=== PATIENT | male | born 1995 | race Two or more races ===

== ENCOUNTER 2018-05-13 11:11 | Emergency (ER) | payer OTHER ==
[2018-05-13 11:30] VITALS: BP 128/78
--- NOTE | 2018-05-13 12:27 | XRAY Report ---
Reason: Trauma Procedure Date: 05/13/2018 Accession Number: [id number] / [id number] Procedure: XR - Wrist 4 View LT CPT Code: FULL RESULT: EXAM: LEFT WRIST RADIOGRAPHY EXAM DATE: 05/13/2018 11:39 AM. CLINICAL HISTORY: Trauma. COMPARISON: None. TECHNIQUE: 3 views. FINDINGS: Bones: Normal. No fractures or bone lesions. Joints: Normal. No subluxations. Soft Tissues: Mild soft tissue swelling noted. No radiopaque foreign bodies are noted. IMPRESSION: 1. No fracture or malalignment. 2. Moderate swelling noted. 3. If patient remains symptomatic, recommend follow up in 10-14 days. RADIA
--- NOTE | 2018-05-13 13:13 | ED Physician Documentation ---
PD HPI UPPER EXT INJURY - Stated complaint Stated Complaint: WRIST PX - Chief complaint Chief Complaint: Ext Problem - History obtained from History obtained from: Patient - History of Present Illness Location: Left (Right-handed woman was popping her left wrist last night and felt a pull or a pop across the top of the left ulna and has mild persistent pain there.) Review of Systems Constitutional: reports: Reviewed and negative Throat: reports: Reviewed and negative Cardiac: reports: Reviewed and negative PD PAST MEDICAL HISTORY - Present Medications Home Medications: Ambulatory Orders Medication Instructions Recorded Confirmed No Known Home Medications 05/13/18 05/13/18 - Allergies Allergies/Adverse Reactions: Allergies Allergy/AdvReac Type Severity Reaction Status Date / Time No Known Drug Allergies Allergy Verified 05/13/18 11:30 PD ED PE NORMAL - Vitals Vital signs reviewed: Yes - General General: Alert and oriented X 3, No acute distress - Extremities Extremities: Other (On the ulnar and dorsal side of the left wrist there is mild tenderness and swelling. She has pain especially with radial deviation of the wrist but otherwise has full range of motion.) - Neuro Neuro: Alert and oriented X 3, Normal speech Results - Vitals Vitals: Vital Signs - 24 hr 05/13/18 11:28 Temperature 36.8 C Heart Rate 71 Respiratory 16 Rate Blood Pressure 128/78 O2 Saturation 99 Oxygen O2 Source Room air - Rads (name of study) L wrist 4v Radiology: EMP read contemporaneously (NAD) Departure - Departure Disposition: 01 Home, Self Care Clinical Impression: Left wrist sprain Qualifiers: Encounter type: initial encounter Qualified Code(s): S63.502A - Unspecified sprain of left wrist, initial encounter Condition: Good Record reviewed to determine appropriate education?: Yes Instructions: ED Sprain Wrist Comments: Recheck with your doctor in 1-2 weeks if not better. You can take Tylenol or ibuprofen as needed for pain.
== END 2018-05-13 13:18 | disposition home or self-care (01) ==
LOC: ED 11:11
DX: S63.502A Unspecified sprain of left wrist, initial encounter (principal); X58.XXXA Exposure to other specified factors, initial encounter
CPT/HCPCS: 99283

== ENCOUNTER 2019-11-25 08:00 | Outpatient (CLI) | payer OTHER ==
[2019-11-25 20:49] LABS: TRICHOMONAS VAGINALIS DNA NEGATIVE (NEGATIVE)
== END 2019-11-25 23:59 | disposition home or self-care (01) ==
LOC: LAB.R 08:00
PROVIDERS: ATTEND Obstetrics & Gynecology
DX: Z34.90 Encounter for supervision of normal pregnancy, unspecified, unspecified trimester (principal)
CPT/HCPCS: 87491; 87591; 87661; 87797

== ENCOUNTER 2019-11-28 10:29 | Outpatient (CLI) | payer OTHER ==
[2019-11-28 10:42] VITALS: BP 126/76
--- NOTE | 2019-11-28 13:07 | PROVIDER PROGRESS NOTE ---
- HPI Chief Complaint: Labor Check Current : Current EDU 12/27/19 Gestation 35 Weeks and 6 Days 1 Para 0 Vital Signs Temperature 37.4 C 11/28/19 10:41 Heart Rate 101 H 11/28/19 10:41 Respiratory Rate 17 11/28/19 10:41 Blood Pressure 126/76 11/28/19 10:41 O2 Saturation 100 11/28/19 10:41 Temperature 37.4 C 11/28/19 10:41 Heart Rate 101 H 11/28/19 10:41 Respiratory Rate 17 11/28/19 10:41 Blood Pressure 126/76 11/28/19 10:41 O2 Saturation 100 11/28/19 10:41 - Procedures OB Procedure Performed: NST NST Procedure: reactive Service Date of procedure: 11/28/19 Findings: CX Long cloed Hi no evidence of SROM bleeding with wiping. None seen on glove Reviewed SROM adn labor. Keep appt
== END 2019-11-28 12:15 | disposition home or self-care (01) ==
LOC: WFO 10:29 → FBP 10:33 → WFO 12:15
PROVIDERS: ATTEND Obstetrics & Gynecology
DX: Z34.03 Encounter for supervision of normal first pregnancy, third trimester (principal); Z3A.35 35 weeks gestation of pregnancy
CPT/HCPCS: 99213

== ENCOUNTER 2019-12-09 12:58 | Outpatient (CLI) | payer OTHER ==
[2019-12-09 13:20] LABS: HGB - HEMOGLOBIN 12.4 g/dL (12.0-16.0); MEAN CORPUSCULAR HEMOGLOBIN 29.9 pg (27.0-31.0); MEAN CORPUSCULAR HGB CONC 33.6 g/dL (32.0-36.0); MEAN CORPUSCULAR VOLUME 88.9 fL (81.0-99.0); MEAN PLATELET VOLUME 10.9 fL (7.9-10.8); RED BLOOD COUNT 4.15 10^6/uL (4.20-5.40); RED CELL DISTRIBUTION WIDTH 13.2 % (12.0-15.0); WHITE BLOOD COUNT 9.4 x10^3/uL (4.8-10.8)
[2019-12-09 13:33] LABS: ALBUMIN 3.4 g/dL (3.2-5.5); BILIRUBIN,TOTAL 0.6 mg/dL (0.2-1.0); CALCIUM 8.9 mg/dL (8.5-10.3); CREATININE 0.6 mg/dL (0.4-1.0); TOTAL PROTEIN 6.9 g/dL (6.7-8.2)
== END 2019-12-09 12:59 | disposition home or self-care (01) ==
LOC: LAB 12:58
PROVIDERS: ATTEND Obstetrics & Gynecology
DX: O26.899 Other specified pregnancy related conditions, unspecified trimester (principal); L29.9 Pruritus, unspecified; Z3A.00 Weeks of gestation of pregnancy not specified
CPT/HCPCS: 36415; 80053; 82542; 85027

== ENCOUNTER 2019-12-20 17:44 | Outpatient (CLI) | payer OTHER ==
[2019-12-20 18:34] VITALS: BP 116/86
[2019-12-20 19:04] LABS: RUPTURE OF MEMBRANES PLUS NEGATIVE (NEGATIVE)
--- NOTE | 2019-12-20 19:39 | PROCEDURE REPORT ---
- HPI Diagnosis/Indication for NST: Other (leaking of fluid) Current EDU 12/27/19 Gestation 39 Weeks and 0 Days 1 Para 0 Vital Signs Temperature 98.6 F 12/20/19 18:31 Heart Rate 88 12/20/19 18:31 Respiratory Rate 18 12/20/19 18:31 Blood Pressure 116/86 H 12/20/19 18:31 O2 Saturation 97 12/20/19 18:31 Temperature 98.6 F 12/20/19 18:31 Heart Rate 88 12/20/19 18:31 Respiratory Rate 18 12/20/19 18:31 Blood Pressure 116/86 H 12/20/19 18:31 O2 Saturation 97 12/20/19 18:31 - Results and Plan Findings/Impression: Category 1 NST Chilo irritable Negative pool, valsalva, nitrizine, and amnisure. Pt with no visible loss of fluid here. Came in not wearing a pad. F/u routine clinic
== END 2019-12-20 19:26 | disposition home or self-care (01) ==
LOC: WFO 17:44 → FBP 17:48 → WFO 19:26
PROVIDERS: ATTEND Obstetrics & Gynecology
DX: Z34.03 Encounter for supervision of normal first pregnancy, third trimester (principal); Z3A.39 39 weeks gestation of pregnancy
CPT/HCPCS: 84112; 99214

== ENCOUNTER 2019-12-25 16:08 | Inpatient (IN) | payer OTHER ==
[2019-12-25] MEDS ORDERED: ONDANSETRON 4 MG/2 ML VIAL IVP PRN (16:51)
[2019-12-25] MEDS ORDERED: miSOPROStoL 200 MCG TABLET BC PRN (16:51)
[2019-12-25] MEDS ORDERED: OXYTOCIN 10 UNIT/ML VIAL IM PRN (16:51)
[2019-12-25] MEDS ORDERED: OXYTOCIN/SODIUM CHLORIDE 500 ML IV PRN (16:51)
[2019-12-25] MEDS ORDERED: LIDOCAINE-MPF 1% 30 ML VIAL ID PRN (16:51)
[2019-12-25] MEDS ORDERED: CARBOPROST TROMETHAMINE 250 MCG/ML AMP IM PRN (16:51)
[2019-12-25] MEDS ORDERED: TRANEXAMIC ACID 1,000 MG in SODIUM CHLORIDE 0.9% 100ML 100 ML IV PRN (16:51)
[2019-12-25] MEDS ORDERED: SODIUM CHLORIDE FLUSH 0.9% 10 ML SYRINGE IVP PRN (16:51)
[2019-12-25] MEDS ORDERED: fentaNYL 100 MCG/2 ML VIAL IVP PRN (16:51)
[2019-12-25] MEDS ORDERED: METHYLERGONOVINE 0.2 MG/ML VIAL IM PRN (16:51)
[2019-12-25] MEDS ORDERED: OXYTOCIN/SODIUM CHLORIDE 500 ML IV SCH (17:00)
--- NOTE | 2019-12-25 17:21 | HISTORY & PHYSICAL EXAMINATION ---
History of Present Illness - History of Present Illness HPI Comment/Other: CC: elective IOL HPI: ready for IOL. Some cramping and loss of mucous plug after she was swept in clinic. No bleeding. No current UC. Good FM. ROS: no fevers, some nausea has returned recently, otherwise feeling well/normal. PMH: preg with IUD failure PSH: neg Allergies: neg Meds: PNV SH: no t/e/d FH: no anesthesia problems OB: G1=current see flow sheet O: AVSS Alert smiling NAD Abd soft, nt/nd, gravid Vertex by britni and SVE. Britni 7.75# SVE 3/80/-2/med/mid. Membranes swept. NST category 1 Howard neg A/P: 24yo G1 at 39w5d by LMP c/w 13w US. IOL with pitocin "elective", is ripe. Aware of alternative of waiting for spontaneous labor. Conceived with IUD--needs AXR A+, RI, , GBS neg, nl pap well being: category 1 NST, vertex, normal genetic screening, normal anatomy, AGA History - Past Medical History MRSA Hx?: No Meds/Allgy - Home Medications Home Medications: Ambulatory Orders Medication Instructions Recorded Confirmed No Known Home Medications 05/13/18 05/13/18 - Allergies Allergies/Adverse Reactions: Allergies Allergy/AdvReac Type Severity Reaction Status Date / Time No Known Drug Allergies Allergy Verified 05/13/18 11:30
[2019-12-25 17:43] LABS: BASOPHILS % (AUTO) 0.4 %; EOSINOPHILS % (AUTO) 0.2 %; HGB - HEMOGLOBIN 12.3 g/dL (12.0-16.0); LYMPHOCYTES % (AUTO) 27.6 %; MEAN CORPUSCULAR HEMOGLOBIN 30.2 pg (27.0-31.0); MEAN CORPUSCULAR HGB CONC 34.4 g/dL (32.0-36.0); MEAN PLATELET VOLUME 11.5 fL (7.9-10.8); MONOCYTES # (AUTO) 0.4 10^3/uL (0.0-1.0); MONOCYTES % (AUTO) 4.1 %; NEUTROPHILS # (AUTO) 7.2 10^3/uL (1.5-6.6); NEUTROPHILS % (AUTO) 67.3 %; PLT - PLATELET COUNT 256 10^3/uL (130-450); RED BLOOD COUNT 4.07 10^6/uL (4.20-5.40); RED CELL DISTRIBUTION WIDTH 13.6 % (12.0-15.0); WHITE BLOOD COUNT 10.7 x10^3/uL (4.8-10.8)
[2019-12-25] MEDS: LACTATED RINGERS 1,000 ML IV SCH (18:05)
[2019-12-25] MEDS: TERBUTALINE 1 MG/ML VIAL SUBQ SCH (18:35)
--- NOTE | 2019-12-26 02:55 | PROVIDER PROGRESS NOTE ---
Subjective - Subjective Subjective: 09/05 contraction started 1h ago, not regular. No LOF. Category 1 NST Dun[place] irregular contractions, sometimes q3 Patient smiling, while in room she had no outwardly visible contraction after verbal consent, AROM clear Discussed hip opening exercises to do now. Anticipate . Objective - Vital Signs/Intake & Output Vital Signs: Vital Signs x48h Temp Pulse Resp BP Pulse Ox 12/25/19 19:30 98.8 F 79 16 126/78 100 - Lab Results Fish Bones: 12/25/19 17:20 Other Labs: Lab Results x24hrs 12/25/19 Range/Units 17:20 WBC 10.7 (4.8-10.8) x10^3/uL RBC 4.07 L (4.20-5.40) 10^6/uL Hgb 12.3 (12.0-16.0) g/dL Hct 35.8 L (37.0-47.0) % MCV 88.0 (81.0-99.0) fL MCH 30.2 (27.0-31.0) pg MCHC 34.4 (32.0-36.0) g/dL RDW 13.6 (12.0-15.0) % Plt Count 256 (130-450) 10^3/uL MPV 11.5 H (7.9-10.8) fL Neut # (Auto) 7.2 H (1.5-6.6) 10^3/uL Lymph # (Auto) 3.0 (1.5-3.5) 10^3/uL [place] # (Auto) 0.4 (0.0-1.0) 10^3/uL Eos # (Auto) 0.0 (0.0-0.7) 10^3/uL Baso # (Auto) 0.0 (0.0-0.1) 10^3/uL Absolute Nucleated RBC 0.00 x10^3/uL Nucleated RBC % 0.0 /100WBC
[2019-12-26] MEDS ORDERED: fentaNYL 100 MCG/2 ML VIAL ONE (04:57)
[2019-12-26] MEDS ORDERED: ROPIVACAINE 0.2% 200 MG/100 ML BAG EP ONE (04:58)
[2019-12-26] MEDS ORDERED: BUPIVACAINE 0.25% PF 10 ML VIAL ONE (04:58)
--- NOTE | 2019-12-26 06:31 | ANESTHESIA ---
Pre-Anesthesia VS, & Labs - Diagnosis active labor - Procedure PATITO Vital Signs: Temp Pulse Resp BP Pulse Ox 37.1 C 79 16 126/78 100 12/25/19 19:30 12/25/19 19:30 12/25/19 19:30 12/25/19 19:30 12/25/19 19:30 Height 5 ft 8 in Weight (kg) 96.797 kg Body Mass Index 25.8 - Is Patient ?: Yes - Lab Results Current Lab Results: Laboratory Tests 12/25/19 17:20: WBC 10.7, RBC 4.07 L, Hgb 12.3, Hct 35.8 L, MCV 88.0, MCH 30.2, MCHC 34.4, RDW 13.6, Plt Count 256, MPV 11.5 H, Neut # (Auto) 7.2 H, Lymph # (Auto) 3.0, [place] # (Auto) 0.4, Eos # (Auto) 0.0, Baso # (Auto) 0.0, Absolute Nucleated RBC 0.00, Nucleated RBC % 0.0 Fish Bones: 12/25/19 17:20 Home Medications and Allergies Active Medications Carboprost Tromethamine (Hemabate) 250 mcg IM Q15M PRN PRN Reason: Step 4: Hemorrhage protocol Stop: 12/27/19 16:51 Fentanyl (Fentanyl) 50 mcg IVP Q1H PRN PRN Reason: PAIN Last Admin: 12/26/19 03:25 Dose: 50 mcg Documented by: Oxytocin/Sodium Chloride (Pitocin/Sodium Chloride) 500 mls @ 999 mls/hr IV PRN PRN; Protocol PRN Reason: POST- HEMORR PREVENTION Stop: 12/27/19 16:51 Tranexamic Acid 1,000 mg/ (Sodium Chloride) 110 mls @ 660 mls/hr IV ONCE PRN PRN Reason: EBL >1200mL and within 3hr Stop: 12/27/19 16:51 Oxytocin/Sodium Chloride (Pitocin/Sodium Chloride) 500 mls @ 1 mls/hr IV TITR KEIKO; Protocol Last Admin: 12/25/19 18:05 Dose: 1 milliunit/min, 1 mls/hr Documented by: Lactated Ringer's (Lr) 1,000 mls @ 150 mls/hr IV .Q6H40M KEIKO Last Admin: 12/25/19 18:05 Dose: 75 mls/hr Documented by: Lidocaine HCl (Xylocaine-Mpf 1% Vial) 30 ml ID ONCE PRN PRN Reason: PERINEAL REPAIR Stop: 12/27/19 16:51 Methylergonovine Maleate (Methergine Inj) 0.2 mg IM ONCE PRN PRN Reason: Step 2: Hemorrhage protocol Stop: 12/27/19 16:51 Misoprostol (Cytotec) 800 mcg BC ONCE PRN PRN Reason: Step 3: Hemorrhage protocol Stop: 12/27/19 16:51 Ondansetron HCl (Zofran Inj) 4 mg IVP Q4H PRN PRN Reason: Nausea / Vomiting Last Admin: 12/26/19 04:32 Dose: 4 mg Documented by: Oxytocin (Pitocin) 10 unit IM ONCE PRN PRN Reason: Step one: If no IV access Stop: 12/27/19 16:51 Sodium Chloride (Normal Saline Flush 0.9%) 10 ml IVP PRN PRN PRN Reason: NEEDED PER PROVIDER ORDERS No Known Home Medications 05/13/18 Allergies/Adverse Reactions: Allergies Allergy/AdvReac Type Severity Reaction Status Date / Time No Known Drug Allergies Allergy Verified 05/13/18 11:30 Anes History & Medical History - Anesthetic History Anesthesia Complications: reports: No previous complications - Medical History Smoking Status: Never smoker - Obstetrical History Events: positive: None Complications: positive: None Exam General: Alert, Oriented x3, Cooperative, No acute distress Plan Anesthesia Type: Epidural Consent for Procedure(s) Verified and Reviewed: Yes Code Status: Attempt Resuscitation ASA classification: 2-Mild systemic disease Is this case an emergency?: No
[2019-12-26] MEDS ORDERED: ePHEDrine 50 MG/ML VIAL IVP PRN (06:35)
[2019-12-26] MEDS ORDERED: LACTATED RINGERS 500 ML IV ONE (06:35)
[2019-12-26] MEDS ORDERED: ROPIVACAINE 0.2% 200 MG/100 ML BAG EP PRN (06:35)
[2019-12-26] MEDS ORDERED: METOCLOPRAMIDE 10 MG/2 ML VIAL IVP PRN (06:35)
[2019-12-26] MEDS ORDERED: NALBUPHINE 10 MG/ML AMP IVP PRN (06:35)
[2019-12-26] MEDS ORDERED: ONDANSETRON 4 MG/2 ML VIAL IVP PRN (06:35)
[2019-12-26] MEDS ORDERED: NALOXONE 0.4 MG/ML VIAL IVP PRN (06:35)
[2019-12-26] MEDS ORDERED: diphenhydrAMINE INJ 50 MG/ML VIAL IVP PRN (06:35)
[2019-12-26] MEDS: LACTATED RINGERS 1,000 ML IV SCH (07:24)
--- NOTE | 2019-12-26 08:19 | CONSULTATION NOTE ---
Consultation Report: Called for new pain at R sided lower pelvic pain w/contractions. Level assessed at T8@L, L1@R. Epidural bolused with 10cc 1% lidocaine. Pt states pain has resolved ater 5 mins. Epidural rate increased from 8 to 12cc/hr, continuous, w/PCEA available prn.
--- NOTE | 2019-12-26 11:43 | CONSULTATION NOTE ---
Consultation Report: Call to OB for air in epidural line and new pain now at L side with contractions. MD and RN at bedside. L side assessed at T12. R@T8. 9cm dilated, OP. Epidural dosed with 8cc1% lidocaine and Fentanyl 100mcg. VSS.
[2019-12-26] MEDS ORDERED: HYDROCORTISONE 1% CREAM 28 GM TUBE PR PRN (13:18)
[2019-12-26] MEDS ORDERED: ONDANSETRON ODT 4 MG TABLET TL PRN (13:18)
[2019-12-26] MEDS ORDERED: WITCH HAZEL/GLYCERIN 1 PAD TOP PRN (13:18)
--- NOTE | 2019-12-26 13:29 | DELIVERY NOTE ---
Delivery Note - Labor Labor: positive: Augmented by ARM, Induced by oxytocin - Delivery Method Infant Delivery Method: positive: Vacuum assist - Presentation Presentation: positive: Vertex, ROT - right occiput transverse - Nuchal Cord Nuchal Cord: positive: None - Amniotic Fluid Description Amniotic Fluid Description: positive: Moderate meconium - Vacuum Use Indication for Vacuum Use: positive: Prolonged 2nd stage Type of Vacuum Cup: positive: Cup: Mushroom Type, Cup: Rigid Vacuum Extraction: positive: Successful Number of pop-offs: 1 - Episiotomy Type Episiotomy Type: positive: None - Laceration Laceration: positive: 1st degree - Suture Suture Type: positive: Vicryl Suture Size: positive: 2-0 - Delivery Outcome Delivery Outcome: positive: Livebirth - Orange: positive: Placed in direct skin contact with mother, Stimulated, Warmed sex: positive: Female : Apgars 8/9 - Cord Cord: positive: 3 vessels - Placenta Placenta: positive: Intact, Spontaneous - Estimated Blood Loss Estimated Blood Loss (in cc): 200 - Post Delivery Events Post Delivery Events: positive: No post delivery events - Delivery Comments (Free Text/Narrative) Delivery Comments (Free Text/Narrative): Elective 39w IOL, started ripe, induced with pitocin and AROM. Progressed well to complete and started immediately pushing. Pushed for 1h with nurses without much change. I assessed pt, pt had brought the baby down some, her efforts were good. Epidural hot spot resolved with a bolus. Pushed another hour. US revealed ROP presentation. MD in room for remainder of 2nd stage to direct management. Patient had multiple position changes including hands and knees, side-lying release, side, lithotomy/squat. After this the baby had moved to a direct ROT position. Patient had been pushing for 4h now without much descent. Counseled that delivery was unlikely without assistance, offered vacuum vs. c- section. Risk of vaccum is <1% bleed on brain or eye. Risk of is higher for mom but lower for baby. Pt chose vacuum. Team called in, bed broken down, repeat US revealed persistent ROT. Bladder emptied. Mushroom kiwi applied to the vertex away from the anterior fontanelle, used over 4 contractions, one pop off. Cup suction pressure was brought up to the kiwi "green zone" and traction was applied with vigorous maternal pushing. Baby was delivered to where about an inch of skull was beyond the vulva. Vacuum removed and patient pushed the baby out spontaneously over about 3 more contractions. Uncomplicated procedure. Anticipate routine care.
[2019-12-26] MEDS: ACETAMINOPHEN 500 MG TABLET PO SCH ×2 (14:36→23:05)
[2019-12-26] MEDS: IBUPROFEN 600 MG TABLET PO SCH ×2 (14:37→20:44)
[2019-12-26] MEDS: DOCUSATE SODIUM 100 MG CAPSULE PO SCH (20:44)
[2019-12-27] MEDS: IBUPROFEN 600 MG TABLET PO SCH ×2 (08:09→20:07)
--- NOTE | 2019-12-27 13:37 | XRAY Report ---
PROCEDURE: Abdomen 1 View X-Ray INDICATIONS: IUD missing location. Just delivered baby. TECHNIQUE: 1 view of the abdomen were acquired. COMPARISON: None. FINDINGS: Surgical changes and devices: None. Bowel: No pneumoperitoneum. The bowel gas pattern is normal. There is mild to moderate stool Soft tissues: No masses; visualized solid organ contours appear normal in size. No suspicious abdom inal calcifications. Bones: No suspicious bony abnormalities. IMPRESSION: No IUD visualized Reviewed by: Lamin Schwab MD on 12/27/2019 1:36 PM PDT Approved by: Lamin Schwab MD on 12/27/2019 1:36 PM PDT Station ID: [id number]
[2019-12-27] MEDS: DOCUSATE SODIUM 100 MG CAPSULE PO SCH ×2 (16:46→20:07)
--- NOTE | 2019-12-27 16:46 | PROVIDER PROGRESS NOTE ---
Subjective - Subjective Subjective: Feeling well, no issues. Vulva is a bit sore, urinating OK, latching awesome, mood is good, eating/ambulating well. AVSS, alert/smiling/cuddling baby, abd soft, nt/nd, fundus firm NT at U. Trace LE edema bilaterally AXR without IUD seen 24yo P1 PPD #1 s/p VAVD at term. Doing well; routine care. Objective - Vital Signs/Intake & Output Vital Signs: Vital Signs x48h Temp Pulse Resp BP Pulse Ox 12/27/19 16:15 98.6 F 77 16 130/81 H 100 12/27/19 09:00 97.9 F 75 19 127/77 96 Intake & Output: Intake & Output 12/24/19 12/25/19 12/26/19 12/27/19 23:59 23:59 23:59 23:59 Intake Total 2498.75 1000 Output Total 950 Balance 1548.75 1000 - Lab Results Fish Bones: 12/25/19 17:20
[2019-12-27] MEDS: ACETAMINOPHEN 500 MG TABLET PO SCH (20:08)
[2019-12-28] MEDS: IBUPROFEN 600 MG TABLET PO SCH (08:14)
[2019-12-28 08:23] VITALS: BP 117/81
--- NOTE | 2019-12-28 08:48 | Discharge Plan ---
Discharge Plan Problem Reviewed?: Yes Disposition: Home, Self Care Condition: Good Diet: Regular Activity Restrictions: Routine Shower Restrictions: No Driving Restrictions: No No Smoking: If you smoke, Please STOP! Call for help. Follow-up with: Jeremy Davies MD [Provider Admit Priv/Credential] - (3w and 6w)
--- NOTE | 2019-12-28 12:36 | Labor Flowsheet ---
Labor Flowsheet Datetime Report Generated by CPN: 12/28/2019 12:36 Datetime: 12/28/2019 08:22 VITAL SIGNS NBP Sys/Kristin/Mean (mmHg): 117 : 81 : 89 Pulse: 77 Datetime: 12/27/2019 16:15 SpO2 (%): 100 Datetime: 12/26/2019 13:45 Stage of : Recovery Datetime: 12/26/2019 12:58 UTERINE ACTIVITY Monitor Mode: Internal Frequency (min): 1.5-2 Quality: Moderate Duration (sec): 40-50 Resting Tone (Palpate): Relaxed Contraction Comments: MVU inaccurate d/t pt pushing ASSESSMENT A Monitor Mode: Telemetry FHR Baseline Rate : 135 Variability: Moderate 6-25 bpm Comments: broken tracing indeterminent accels/decels Oxygen Method: Room Air Preparation for Delivery: IUPC Removed Intact Datetime: 12/26/2019 12:55 Vacuum: Off Station Vacuum/Forceps Applied: removed by MD Datetime: 12/26/2019 12:45 Pattern: Normal: <= 5 Contractions in 10 Minutes [place] Units (mmHg): 35 Accelerations: None Decelerations: None Category: Category I LaborFlag: Labor Datetime: 12/26/2019 12:43 I/O Interventions: Straight Cath (ml) @ 175 Datetime: 12/26/2019 12:33 COMMUNICATION Communication: Provider at Bedside Provider Notified (Name): Dr Lisa Notification Reason: Status Update Communication Comments: MD discussed with pt the risk and benefits of vacuum with pt and spouse Datetime: 12/26/2019 11:56 Monitor Interventions for UA: IUPC Inserted Membrane Comments: moderate mec when IUPC placed Datetime: 12/26/2019 11:28 Monitor Interventions for FHR: Ultrasound Adjusted Datetime: 12/26/2019 11:20 Anesthesia Comments: bag changed Datetime: 12/26/2019 11:14 Temperature (C): 36.4 Datetime: 12/26/2019 11:11 Patient Position/Activity: Hands-Knees Datetime: 12/26/2019 10:30 Patient Care Comments: pt holding ankles with contra Datetime: 12/26/2019 10:04 STAGE 2 Pushing: Coached on Pushing Pushing Position: Pushing with Contractions Pushing Progress: Pushing Effectively with Contractions Datetime: 12/26/2019 09:50 MEDICATIONS Pitocin (milliunits): Increased to @ 13 Datetime: 12/26/2019 09:28 Respirations: 18 Datetime: 12/26/2019 08:35 Exam by: Dr. Brody Vaginal Exam Comments: complete ready to push, martinez d/c'd Datetime: 12/26/2019 07:39 Epidural Procedure Other: Redose Datetime: 12/26/2019 07:29 Pain Assessment Comments: 7/10 pt using PCEA button Datetime: 12/26/2019 06:11 VAGINAL EXAM Dilatation (cm): 7.0 Effacement (%): 90 Station: 0 Vaginal Bleeding: Normal Show Cervix, Consistency: Soft Cervix, Position: Anterior Datetime: 12/26/2019 06:00 Pitocin Checklist: At Least 1 Acceleration of 15 bpm x 15 Seconds in 30 Minutes or Adequate Variabi lity; No More than 1 Late Deceleration Occurred in Past 30 Minutes; No More than 2 Variable Decelerat ions > 60 Seconds in Duration and decreasing >60 bpm in 30 minutes; No More than 5 Uterine Contractio ns in 10 Minutes for any 20 Minute Interval; Uterus Palpates Soft between Contractions Datetime: 12/26/2019 05:39 PAIN Pain Scale: 3 Pain Presence: Intermittent Pain Type: Contraction Pain Location: Abdomen Pain Coping: Talking Through Contractions; Breathing Through Contractions Comfort Measures: Breathing/Relaxation Datetime: 12/26/2019 05:27 Pain Relief Measures: Epidural Given Datetime: 12/26/2019 05:20 Epidural Procedure: Test Dose Datetime: 12/26/2019 05:01 PROCEDURE TIME OUT Procedure Verify: Correct Patient Identity; Correct Side and Site are Marked; Correct Patient Posit ion ANESTHESIA Anesthesia Plans: Epidural Epidural Positioning: Sitting Datetime: 12/26/2019 03:27 Analgesics/Sedatives: Fentanyl (mcg) @ 50 Datetime: 12/26/2019 02:46 Membrane Status: Ruptured Membranes Rupture Method: Artificial Amniotic Fluid Color: Clear Amniotic Fluid Amount: Small Datetime: 12/26/2019 00:00 FHR Baseline Changes: Tachycardia Datetime: 12/25/2019 19:22 MATERNAL ASSESSMENT Level of Consciousness: Alert DTR's/Clonus: DTRs Absent; No Clonus Headache: Denies Breath Sounds, Left: Clear and Equal Breath Sounds, Right: Clear and Equal Nausea/Vomiting: Denies RUQ Epigastric Pain: Denies Maternal Comments: only able to illicit L brachial DTR +1 Datetime: 12/25/2019 18:18 PATIENT CARE IV/Blood Work: New IV Bag Hung; IV Bag Number @ 1
--- NOTE | 2019-12-28 12:39 | DISCHARGE SUMMARY ---
Physician: Ramonita Gonzalez MD DATE OF ADMISSION: 12/25/2019 DATE OF DISCHARGE: 12/28/2019 ADMISSION DIAGNOSES 1. Elective induction of labor at 39 weeks 5 days. 2. Conceived with an intrauterine device for contraception. DISCHARGE DIAGNOSES 1. Failure to descend. 2. Vacuum-assisted vaginal delivery. 3. No intrauterine device present on abdominal x-ray, consistent with intrauterine device expulsion prior to conception. OPERATIONS AND PROCEDURES On 12/26/2019, vacuum-assisted vaginal delivery of a liveborn female, Apgars 8 at one minute and 9 at five minutes. This was performed because of a prolonged second stage with a baby who was initially in OP and then a direct OT presentation. The patient was an excellent pusher, but was unable to deliver due to this malpresentation. The vacuum was successful, but complicated by a superficial skin wound over the vacuum site. HOSPITAL COURSE: The patient was admitted and induced with Pitocin. She progressed well to complete and then after 4 hours of pushing with an epidural and an OT baby, she underwent vacuum-assisted vaginal delivery. This was uncomplicated for mom, but baby did suffer a superficial abrasion, healing well and without further complication. The patient had an abdominal x-ray to evaluate for any retained IUD. She had conceived using an IUD for contraception. Ultrasounds in had not revealed an IUD in the uterus. There was no IUD seen on abdominal x-ray . This is consistent with occult IUD expulsion prior to conception. By day 2, the patient was eager to go home. She was eating, ambulating, urinating, and without difficulties. Her mood was good. No problems with significant pain or bleeding. She is afebrile with normal vital signs. Alert and pleasant, in no apparent distress. Smiling and holding baby. Abdomen was soft, nontender, nondistended. Fundus firm, nontender, and at the umbilicus. Lower extremities with trace edema, nonpitting. Patient's blood type A positive, rubella immune, varicella immune and had a normal Pap smear. DISPOSITION: Home. CONDITION: Good. FOLLOWUP: In 3 weeks for a mood check and then at 6 weeks for a check. The patient is anticipating using barrier and withdrawal for contraception. TD: 12/28/2019 10:11 [facility]
== END 2019-12-28 12:05 | disposition home or self-care (01) | DRG 807 ==
LOC: WFO 16:08 → FBP 16:11 → WFO 16:50 → FBP 16:51
PROVIDERS: ADMIT Obstetrics & Gynecology; ATTEND Obstetrics & Gynecology
PROC: 10D07Z6 Extraction of Products of Conception, Vacuum, Via Natural or Artificial Opening (ICD-10-PCS; principal; 2019-12-26)
PROC: 10907ZC Drainage of Amniotic Fluid, Therapeutic from Products of Conception, Via Natural or Artificial Opening (ICD-10-PCS; 2019-12-26)
PROC: 3E033VJ Introduction of Other Hormone into Peripheral Vein, Percutaneous Approach (ICD-10-PCS; 2019-12-26)
PROC: 0HQ9XZZ Repair Perineum Skin, External Approach (ICD-10-PCS; 2019-12-26)
DX: O64.8XX0 Obstructed labor due to other malposition and malpresentation, not applicable or unspecified (principal); Z37.0 Single live birth; Z3A.39 39 weeks gestation of pregnancy; O77.0 Labor and delivery complicated by meconium in amniotic fluid; O70.0 First degree perineal laceration during delivery; O63.1 Prolonged second stage (of labor)
CPT/HCPCS: 36415; 74018; 85025; A9270; J7120

== ENCOUNTER 2020-01-18 20:10 | Emergency (ER) | payer OTHER ==
--- NOTE | 2020-01-18 20:35 | ED Physician Documentation ---
History of Present Illness - Stated complaint Stated Complaint: FEVER/PELVIC PX - Chief complaint Chief Complaint: Abd Pain - History obtained from History obtained from: Patient - Additonal information Additional information: G1 now P1 she is 3 weeks from a spontaneous vaginal delivery complicated by prolonged rupture of membranes and vacuum assist. Fever since yesterday morning up to 102 at home with pelvic pain. Also some mild left breast pain. She is breast-feeding. No respiratory symptoms. Review of Systems Ten Systems: 10 systems reviewed and negative Constitutional: reports: Reviewed and negative Eyes: reports: Reviewed and negative Ears: reports: Reviewed and negative Nose: reports: Reviewed and negative Throat: reports: Reviewed and negative PD PAST MEDICAL HISTORY - Past Surgical History Past Surgical History: No - Present Medications Home Medications: Ambulatory Orders Medication Instructions Recorded Confirmed Clindamycin HCl [Clindamycin 300MG 300 mg PO Q6H #28 capsule 01/18/20 CAP] - Allergies Allergies/Adverse Reactions: Allergies Allergy/AdvReac Type Severity Reaction Status Date / Time No Known Drug Allergies Allergy Verified 01/18/20 20:18 - Social History Does the pt smoke?: No Smoking Status: Never smoker Does the pt drink ETOH?: No Does the pt have substance abuse?: No - Immunizations Immunizations are current?: Yes PD ED PE NORMAL - Vitals Vital signs reviewed: Yes - General General: Alert and oriented X 3, No acute distress - HEENT HEENT: PERRL, EOMI - Neck Neck: Supple, no meningeal sign, No bony TTP - Cardiac Cardiac: RRR, No murmur - Respiratory Respiratory: No respiratory distress, Clear bilaterally - Abdomen Abdomen: Soft, Non tender - Back Back: No CVA TTP, No spinal TTP - Derm Derm: Other (She actually does have mild tenderness of the superolateral left breast examined with A[facility]ce tech in the room. Could be early mastitis.) - Extremities Extremities: No edema, No calf tenderness / cord - Neuro Neuro: Alert and oriented X 3, Normal speech Results - Vitals Vitals: Vital Signs - 24 hr 01/18/20 01/18/20 20:14 22:11 Temperature 37.6 C H 37.4 C Heart Rate 109 H 103 H Respiratory 16 18 Rate Blood Pressure 124/71 113/73 O2 Saturation 98 97 Oxygen O2 Source Room air - Labs Labs: Laboratory Tests 01/18/20 01/18/20 01/18/20 20:33 20:33 20:37 WBC 9.2 RBC 4.28 Hgb 12.7 Hct 37.7 MCV 88.1 MCH 29.7 MCHC 33.7 RDW 13.2 Plt Count 266 MPV 10.4 Neut # (Auto) 7.5 H Lymph # (Auto) 1.2 L [place] # (Auto) 0.3 Eos # (Auto) 0.1 Baso # (Auto) 0.0 Absolute Nucleated RBC 0.00 Nucleated RBC % 0.0 Sodium 135 Potassium 3.5 Chloride 100 L Carbon Dioxide 23 Anion Gap 12.0 BUN 14 Creatinine 0.7 Estimated GFR (MDRD) 105 Glucose 99 Lactic Acid 1.3 Calcium 9.0 Total Bilirubin 0.5 AST 18 ALT 17 Alkaline Phosphatase 80 Total Protein 7.8 Albumin 4.0 Globulin 3.8 Albumin/Globulin Ratio 1.1 Lipase 27 Urine Color Urine Clarity Urine pH Ur Specific [place] Urine Protein Urine Glucose (UA) Urine Ketones Urine Occult Blood Urine Nitrite Urine Bilirubin Urine Urobilinogen Ur Leukocyte Esterase Urine RBC Urine WBC Ur Squamous Epith Cells Urine Bacteria Ur Microscopic Review Urine Culture Comments 01/18/20 22:13 WBC RBC Hgb Hct MCV MCH MCHC RDW Plt Count MPV Neut # (Auto) Lymph # (Auto) [place] # (Auto) Eos # (Auto) Baso # (Auto) Absolute Nucleated RBC Nucleated RBC % Sodium Potassium Chloride Carbon Dioxide Anion Gap BUN Creatinine Estimated GFR (MDRD) Glucose Lactic Acid Calcium Total Bilirubin AST ALT Alkaline Phosphatase Total Protein Albumin Globulin Albumin/Globulin Ratio Lipase Urine Color YELLOW Urine Clarity SL. CLOUDY Urine pH 6.0 Ur Specific [place] 1.020 Urine Protein TRACE Urine Glucose (UA) NEGATIVE Urine Ketones 15 H Urine Occult Blood NEGATIVE Urine Nitrite POSITIVE H Urine Bilirubin NEGATIVE Urine Urobilinogen 2 H Ur Leukocyte Esterase LARGE H Urine RBC 0-5 Urine WBC >25 H Ur Squamous Epith Cells NONE SEEN Urine Bacteria Many H Ur Microscopic Review INDICATED Urine Culture Comments INDICATED PD MEDICAL DECISION MAKING - ED course ED course: 4-year-old woman presents with fever. She is 3 weeks so would be a little delayed for endometritis, but this is certainly on the differential. That said the ultrasound shows no evidence of that. She does look like she has mild left breast cellulitis/mastitis. No evidence of abscess and nothing else would suggest an alternative cause for the fever so she was treated for mastitis with clindamycin. Update 01/19/20 1131am: Spoke with pt by phone, UA was resulted after dischg, she had no sx of UTI. She is feeling much much better today with no fever since discharge last night. Considered calling in new abx with better covg for UTI daisy, but since doing better we agreed to wait until cx result available. Departure - Departure Disposition: Home, Self Care Clinical Impression: Mastitis, Pelvic pain Condition: Good Record reviewed to determine appropriate education?: Yes Instructions: ED Breast Infec Follow-Up: Sruthi Zimmerman MD [Provider Admit Priv/Credential] - Prescriptions: Clindamycin HCl [Clindamycin 300MG CAP] 300 mg PO Q6H #28 capsule Comments: Return if worse or if not better in the 24 to 36-hour time range. Call Dr. Zimmerman's office for follow-up on Monday. Tylenol as needed for the fevers. Discharge Date/Time: 01/18/20 22:15
[2020-01-18 20:46] LABS: BASOPHILS % (AUTO) 0.4 %; EOSINOPHILS # (AUTO) 0.1 10^3/uL (0.0-0.7); EOSINOPHILS % (AUTO) 0.9 %; HGB - HEMOGLOBIN 12.7 g/dL (12.0-16.0); LYMPHOCYTES # (AUTO) 1.2 10^3/uL (1.5-3.5); MEAN CORPUSCULAR HEMOGLOBIN 29.7 pg (27.0-31.0); MEAN CORPUSCULAR HGB CONC 33.7 g/dL (32.0-36.0); MEAN CORPUSCULAR VOLUME 88.1 fL (81.0-99.0); MEAN PLATELET VOLUME 10.4 fL (7.9-10.8); MONOCYTES # (AUTO) 0.3 10^3/uL (0.0-1.0); MONOCYTES % (AUTO) 3.4 %; NEUTROPHILS # (AUTO) 7.5 10^3/uL (1.5-6.6); PLT - PLATELET COUNT 266 10^3/uL (130-450); RED BLOOD COUNT 4.28 10^6/uL (4.20-5.40); RED CELL DISTRIBUTION WIDTH 13.2 % (12.0-15.0); WHITE BLOOD COUNT 9.2 x10^3/uL (4.8-10.8)
[2020-01-18 20:58] LABS: ALBUMIN/GLOBULIN RATIO 1.1 (1.0-2.2); BILIRUBIN,TOTAL 0.5 mg/dL (0.2-1.0); CREATININE 0.7 mg/dL (0.4-1.0); TOTAL PROTEIN 7.8 g/dL (6.7-8.2)
[2020-01-18] MEDS ORDERED: CLINDAMYCIN 150 MG CAPSULE PO STA (22:04)
[2020-01-18 22:12] VITALS: BP 113/73
[2020-01-18 22:16] LABS: BILIRUBIN,URINE NEGATIVE (NEGATIVE); GLUCOSE, URINE (UA) NEGATIVE (NEGATIVE); KETONES,URINE (UA) 15 mg/dL (NEGATIVE); LEUKOCYTE ESTERASE, URINE LARGE (NEGATIVE); NITRITE,URINE POSITIVE (NEGATIVE); OCCULT BLOOD,URINE NEGATIVE (NEGATIVE); PROTEIN,URINE TRACE mg/dL (NEGATIVE); UROBILINOGEN,URINE 2 E.U./dL (NORMAL)
[2020-01-18 22:31] LABS: BACTERIA,URINE Many /HPF (None Seen); CLARITY,URINE SL. CLOUDY (CLEAR); RBC,URINE 0-5 /HPF (0-5); SQUAMOUS EPITHELIAL CELL,UR NONE SEEN (<= Few)
--- NOTE | 2020-01-19 08:32 | Ultrasound Report ---
PROCEDURE: Pelvic w/Transvaginal INDICATIONS: post fever TECHNIQUE: Real-time scanning was performed of the pelvic organs, with image documentation. Additional endovagi nal scanning was necessary due to incomplete visualization of the adnexal and endometrial structures by transabdominal scanning. COMPARISON: None. FINDINGS: Transabdominal scanning: Limited scanning through the kidneys shows no hydronephrosis. No pathologi c free abdominal or pelvic fluid. Endovaginal scanning: Uterus: Uterus is normal in size at 9.5 x 5.3 x 8.7 cm. The endometrium measures 2.9 mm in combined thickness. Small amount of fluid within the endometrial canal. Ovaries: Within normal limits bilaterally. IMPRESSION: Fluid within the endometrial canal with no evidence of retained product of conception. Reviewed by: Colin Menjivar MD on 01/19/2020 8:31 AM PDT Approved by: Colin Menjivar MD on 01/19/2020 8:31 AM PDT Station ID: [id number]
== END 2020-01-18 22:15 | disposition home or self-care (01) ==
LOC: ED 20:10
DX: O91.22 Nonpurulent mastitis associated with the puerperium (principal); O99.89 Other specified diseases and conditions complicating pregnancy, childbirth and the puerperium; R10.2 Pelvic and perineal pain
CPT/HCPCS: 36415; 76830; 76856; 80053; 81001; 83605; 83690; 85025; 87040; 87086; 87181; 99284; A9270; 81003